=== PATIENT | male | born 1975 | race African-American/Black ===

== ENCOUNTER → 2024-01-14 | Outpatient (REF) ==
[2024-01-16 11:48] LABS: QuantiFERON-TB Gold Plus NEGATIVE (NEGATIVE)
== END ==
LOC: M LAB 11:59
PROVIDERS: ATTEND Family Medicine
DX: Z00.00 Encounter for general adult medical examination without abnormal findings (principal)

== ENCOUNTER 2024-08-29 02:23 | Emergency (ER) | payer OTHER ==
[~2024-08-29] VITALS: Ht 170.2 cm; Wt 102.5 kg
[2024-08-29 02:27] VITALS: TEMP 97.7
[2024-08-29 05:00] VITALS: BP 149/88; O2SAT 97
[2024-08-29] MEDS: OXYMETAZOLINE 0.05% NASAL SPRAY ONE (05:06)
== END 2024-08-29 05:18 | disposition home or self-care (01) ==
LOC: M ED 02:23
DX: R04.0 Epistaxis (principal); I10 Essential (primary) hypertension